=== PATIENT | female | born 1995 | race Two or more races ===

== ENCOUNTER → 2020-05-18 | Outpatient (CLI) | payer MEDICAID ==
[~2020-05-18] MED LIST: PREN-145 PO; TETRACAINE 1% INJ 2 ML VIAL IJ ONE
--- NOTE | 2020-05-18 13:00 | NUR ---
PT presents to COVID pre op swab. Pt given pre-procedure guidelines after covid test handout and consent signed. Swab obtained using proper technique and proper PPE.
== END | disposition home or self-care (01) ==
LOC: OB 12:40
PROVIDERS: ATTEND Obstetrics & Gynecology
DX: Z20.828 Contact with and (suspected) exposure to other viral communicable diseases (principal)

== ENCOUNTER 2020-05-23 04:25 | Inpatient (IN) | payer MEDICAID ==
[2020-05-23] VITALS (14 sets, daily range): BP systolic 89–113; BP diastolic 49–72
[~2020-05-23] VITALS: Ht 157.5 cm; Wt 64.9 kg
[~2020-05-23 04:25] MED LIST changes: -TETRACAINE 1% INJ 2 ML VIAL IJ ONE
[2020-05-23] MEDS ORDERED: LACTATED RINGER'S 1,000 ML IV SCH ×2 (04:35→09:21)
[2020-05-23 05:17] LABS: Basophils # (auto) 0.1 10 ^3/uL (0-0.2); Basophils % (auto) 0.6 % (0.0-2.0); Eosinophils # (auto) 0.1 10 ^3/uL (0-0.8); Eosinophils % (auto) 0.6 % (0.0-7.0); Hematocrit 36.6 % (36.0-46.0); Lymphocytes # (auto) 2.3 10 ^3/uL (0.4-5.4); Mean Corpuscular Hemoglobin 29.1 pg (28.0-32.0); Mean Corpuscular Hgb Conc. 32.7 g/dL (32.0-36.0); Monocytes # (auto) 0.6 10 ^3/uL (0-1.3); Monocytes % (auto) 6.9 % (0.0-12.0); Neutrophils # (auto) 5.5 10 ^3/uL (1.6-8.6); Neutrophils % (auto) 64.9 % (37.0-80.0); Nucleated Red Blood Cells % 0.1 %; Platelet Count (auto) 357 10^3/uL (140-450); Red Blood Cells 4.11 10^6/uL (4.0-5.20); Red Cell Distribution Width 13.7 % (11.8-14.3); White Blood Cell 8.5 10^3/uL (4.4-10.8)
[2020-05-23 05:23] LABS: Urine Bacteria MOD /hpf (None Seen); Urine Blood Negative /uL (Negative); Urine Mucus FEW (None Seen); Urine Specific Gravity 1.014 (1.001-1.035); Urine WBC 31 /hpf (0 - 5)
[2020-05-23 05:33] LABS: INR 0.9 (0.9-1.15); Partial Thromboplastin Time 22.9 sec (23.0-31.2)
[2020-05-23 05:35] LABS: Albumin 2.9 g/dL (3.4-5.0); Calcium 8.5 mg/dL (8.5-10.1); Potassium 3.5 mmol/L (3.5-5.1)
[2020-05-23 05:39] LABS: BUN/Creatinine Ratio 14.9; Bilirubin, Total 0.2 mg/dL (0.2-1.0); Total Protein 7.3 g/dL (6.4-8.2)
[2020-05-23 06:48] LABS: Alcohol, Urine < 3.0 mg/dL (0-10); Amphetamine Screen, Urine NEGATIVE (NEGATIVE); Barbiturate Scree,Urine NEGATIVE (NEGATIVE); Benzodiazephine Screen, Urine NEGATIVE (NEGATIVE); Cannabinoid Screen, Urine NEGATIVE (NEGATIVE); Cocaine Screen, Urine NEGATIVE (NEGATIVE); Opiate Scree,Urine NEGATIVE (NEGATIVE); Phencyclidine Screen, Urine NEGATIVE (NEGATIVE)
[2020-05-23] MEDS ORDERED: ePHEDrine SULFATE 50 MG/ML AMP ONE (07:34)
[2020-05-23] MEDS ORDERED: PHENYLEPHRINE HCL 10 MG/ML VL ONE (07:34)
[2020-05-23] MEDS ORDERED: MORPHINE SULF(PF) 0.5MG/ML 10ML VIAL ONE (07:34)
[2020-05-23] MEDS ORDERED: oxyTOCIN 10 UNIT/ML 10ML VIAL ONE (07:35)
[2020-05-23] MEDS ORDERED: ceFAZolin 1GM VL ONE (07:35)
[2020-05-23] MEDS ORDERED: MIDAZOLAM HCL 1MG/1ML-2 ML VIAL ONE ×2 (08:21→08:33)
[2020-05-23] MEDS ORDERED: METOCLOPRAMIDE HCL 5MG/ml INJ 2ml VIAL ONE (08:26)
[2020-05-23] MEDS ORDERED: ONDANSETRON HCL 4 MG/2 ML VIAL IV PRN ×3 (08:45→09:30)
[2020-05-23] MEDS ORDERED: HYDROmorphone HCL 2 MG/ML VL IV PRN ×2 (08:45→09:30)
[2020-05-23] MEDS ORDERED: KETOROLAC TROMETH 30 MG/ML 1ML VIAL IV PRN (08:45)
[2020-05-23] MEDS ORDERED: diphenhdrAMINE HCL 50 MG/1 ML VL IV PRN (08:45)
[2020-05-23] MEDS ORDERED: NALOXONE HCL 0.4 MG/ML VIAL IV PRN ×2 (08:45)
[2020-05-23] MEDS ORDERED: ACETAMINOPHEN IV 1000 MG/100ML (10MG/ML) IV PRN (09:30)
[2020-05-23] MEDS ORDERED: GUM (CHEWING) 1 GUM CHEW CHEW ONE (09:30)
--- NOTE | 2020-05-23 09:50 | NUR ---
Pt to room 8A from [facility] Report received from Rae pattern technician Fundus firm, scant bleeding, incision dressing dry and intact. Will continue to monitor.
[2020-05-23] MEDS: KETOROLAC TROMETH 30 MG/ML 1ML VIAL IV PRN ×2 (10:05→19:22)
--- NOTE | 2020-05-23 11:45 | NUR ---
Report received on stable patient from [facility]. Care transferred at this time
[2020-05-23] MEDS: ceFAZolin 1GM/50ML 50 ML IV SCH (16:04)
--- NOTE | 2020-05-23 17:15 | NUR ---
Pericare performed; bess pad and underpad changed; patient tolerated well.
--- NOTE | 2020-05-23 21:30 | NUR ---
Ambulation: Patient OOB with standby assistance by RN. Medel provided. Patient ambulates longterm down valentine via steady gait and tolerates well. Clean gown provided and bed linen changed. Patient ambulated back to bed with steady gait and no distress noted.
[2020-05-24] MEDS: ceFAZolin 1GM/50ML 50 ML IV SCH ×2 (00:24→07:17)
[2020-05-24] MEDS: KETOROLAC TROMETH 30 MG/ML 1ML VIAL IV PRN (02:19)
[2020-05-24 03:30] VITALS: BP 110/60
--- NOTE | 2020-05-24 05:00 | NUR ---
Browne catheter dc'd Order to discontinue browne catheter. Browne dc'd with clean technique following deflation of balloon. Patient tolerated well with no complaints of pain. Continue care.
[2020-05-24 05:11] LABS: RPR Non Reactive (Non Reactive)
[2020-05-24 06:20] LABS: Basophils # (auto) 0.1 10 ^3/uL (0-0.2); Eosinophils # (auto) 0 10 ^3/uL (0-0.8); Eosinophils % (auto) 0.2 % (0.0-7.0); Hematocrit 30.2 % (36.0-46.0); Lymphocytes # (auto) 1.3 10 ^3/uL (0.4-5.4); Lymphocytes % (auto) 13.1 % (10.0-50.0); Mean Corpuscular Hemoglobin 29.7 pg (28.0-32.0); Mean Corpuscular Hgb Conc. 33.3 g/dL (32.0-36.0); Mean Corpuscular Volume 89.2 fL (80.0-100.0); Monocytes # (auto) 0.8 10 ^3/uL (0-1.3); Monocytes % (auto) 7.8 % (0.0-12.0); Neutrophils % (auto) 77.9 % (37.0-80.0); Platelet Count (auto) 257 10^3/uL (140-450); Red Blood Cells 3.38 10^6/uL (4.0-5.20); Red Cell Distribution Width 13.6 % (11.8-14.3); White Blood Cell 10.2 10^3/uL (4.4-10.8)
[2020-05-24 07:21] VITALS: BP 89/44
[2020-05-24] MEDS ORDERED: BISACODYL 10 MG RECT SUPP PR PRN (08:30)
[2020-05-24] MEDS ORDERED: HYDROcodone-ACET 5/325MG TAB PO PRN (08:30)
--- NOTE | 2020-05-24 09:20 | NUR ---
Ambulation: Patient OOB with no assistance by RN. Patient ambulated to bathroom with steady gait. Patient able to void 300mL without difficulty. Patient ambulated back to bed with steady gait and no distress noted.
[2020-05-24] MEDS: DOCUSATE SOD 100 MG CAP PO SCH ×2 (09:22→21:28)
[2020-05-24] MEDS: DOCUSATE CALCIUM 240 MG CAP PO SCH (09:22)
[2020-05-24] MEDS: HYDROcodone-ACET 5/325MG TAB PO PRN ×4 (09:23→22:13)
[2020-05-24 11:30] VITALS: BP 92/46
[2020-05-24] MEDS: SIMETHICONE 80 MG CHEWABLE TABLET PO SCH ×3 (11:52→21:28)
[2020-05-24] MEDS: IBUPROFEN 800 MG TAB PO PRN ×2 (11:52→20:56)
[2020-05-24 15:00] VITALS: BP 89/54
[2020-05-24 19:00] VITALS: BP 90/74
[2020-05-24] MEDS ORDERED: BISACODYL 10 MG RECT SUPP PR ONE (22:30)
[2020-05-24 23:00] VITALS: BP 95/50
[2020-05-25] MEDS: HYDROcodone-ACET 5/325MG TAB PO PRN ×4 (02:33→19:00)
[2020-05-25 02:40] VITALS: BP 93/59
[2020-05-25] MEDS: SIMETHICONE 80 MG CHEWABLE TABLET PO SCH ×4 (05:28→22:33)
[2020-05-25] MEDS: IBUPROFEN 800 MG TAB PO PRN ×3 (05:29→22:33)
[2020-05-25 07:30] VITALS: BP 109/53
[2020-05-25] MEDS: DOCUSATE CALCIUM 240 MG CAP PO SCH (10:31)
[2020-05-25] MEDS: DOCUSATE SOD 100 MG CAP PO SCH ×2 (10:31→22:33)
[2020-05-25 11:00] VITALS: BP 89/44
--- NOTE | 2020-05-25 13:23 | NUR ---
IV removal IV DC'd with sterile technique, catheter fully intact to left hand 20g. Pressure dressing applied to site. Patient tolerated procedure well. Discharged with aftercare instructions per MD. NOTE:
[2020-05-25 15:00] VITALS: BP 92/52
[2020-05-25 19:15] VITALS: BP 97/55
[2020-05-25 22:42] VITALS: BP 106/65
[2020-05-26 02:52] VITALS: BP 98/56
[2020-05-26] MEDS: HYDROcodone-ACET 5/325MG TAB PO PRN ×2 (02:55→08:07)
[2020-05-26] MEDS: SIMETHICONE 80 MG CHEWABLE TABLET PO SCH (05:34)
[2020-05-26 07:30] VITALS: BP 105/59
--- NOTE | 2020-05-26 08:10 | NUR ---
BLOOD PRESURES REVIEWED WITH mitch VALENZUELA to continue with discharge to home
[2020-05-26] MEDS: DOCUSATE CALCIUM 240 MG CAP PO SCH (10:21)
[2020-05-26] MEDS: DOCUSATE SOD 100 MG CAP PO SCH (10:21)
[2020-05-26] MEDS: IBUPROFEN 800 MG TAB PO PRN (10:21)
[2020-05-26 10:29] VITALS: BP 120/80
--- NOTE | 2020-05-26 10:53 | NUR ---
Discharge: Discharge instructions given as ordered. Pt encouraged to follow up with EXTRACT[employer] LO[employer]ER [employer] UN[employer] as instructed. All questions and concerns addressed. Patient verbalized understanding. Medication reconciliation completed and copy given to patient. All required/requested vaccines given and copies of vaccinations given to patient. Patient encouraged to prepare to depart unit.
--- NOTE | 2020-05-26 11:00 | NUR ---
Discharge: Patient taken to vehicle, ambulatory with steady gait,, accompanied by staff and family member. No distress noted at time of departure, no adverse changes in status since initial assessment.
== END 2020-05-26 11:00 | disposition home or self-care (01) | DRG 540 ==
LOC: LDRP 04:25
PROVIDERS: ADMIT Specialist; ATTEND Specialist
PROC: 0UL70CZ Occlusion of Bilateral Fallopian Tubes with Extraluminal Device, Open Approach (ICD-10-PCS; 2020-05-23)
PROC: 10D00Z1 Extraction of Products of Conception, Low, Open Approach (ICD-10-PCS; principal; 2020-05-23 07:44)
DX: O99.62 Diseases of the digestive system complicating childbirth (principal); O34.211 Maternal care for low transverse scar from previous cesarean delivery; Z37.0 Single live birth; Z3A.39 39 weeks gestation of pregnancy; R71.0 Precipitous drop in hematocrit; K21.9 Gastro-esophageal reflux disease without esophagitis; Z30.2 Encounter for sterilization
CPT/HCPCS: 36415; 59025; 80053; 80307; 81001; 84112; 85025; 85610; 85730; 86592; 86850; 86870; 86900; 86901; 96360; 96361; 96374; 96375; G0378; J0131; J0690; J1885; J2250; J2405; J2590

== ENCOUNTER 2022-12-06 16:50 | Emergency (ER) | payer MEDICAID ==
[~2022-12-06] VITALS: Ht 157.5 cm; Wt 65.4 kg
[2022-12-06 16:57] VITALS: BP 121/69
[2022-12-06 17:26] LABS: Basophils # (auto) 0.1 10 ^3/uL (0-0.2); Basophils % (auto) 1.2 % (0.0-2.0); Eosinophils # (auto) 0.1 10 ^3/uL (0-0.8); Eosinophils % (auto) 0.9 % (0.0-7.0); Hematocrit 31.4 % (36.0-46.0); Hemoglobin 10.2 g/dL (12.2-16.2); Lymphocytes # (auto) 2.4 10 ^3/uL (0.4-5.4); Mean Corpuscular Hemoglobin 25.5 pg (28.0-32.0); Mean Corpuscular Hgb Conc. 32.6 g/dL (32.0-36.0); Mean Corpuscular Volume 78.3 fL (80.0-100.0); Monocytes # (auto) 0.6 10 ^3/uL (0-1.3); Monocytes % (auto) 7.8 % (0.0-12.0); Neutrophils # (auto) 4.1 10 ^3/uL (1.6-8.6); Neutrophils % (auto) 57.1 % (37.0-80.0); Red Blood Cells 4.01 10^6/uL (4.0-5.20); Red Cell Distribution Width 15.8 % (11.8-14.3); White Blood Cell 7.2 10^3/uL (4.4-10.8)
[2022-12-06 17:34] LABS: Albumin 3.8 g/dL (3.4-5.0); Calcium 8.4 mg/dL (8.5-10.1); Potassium 3.4 mmol/L (3.5-5.1)
[2022-12-06 17:37] LABS: Bilirubin, Total 0.2 mg/dL (0.2-1.0); Total Protein 7.4 g/dL (6.4-8.2)
== END 2022-12-06 22:25 | disposition left against medical advice (07) ==
LOC: ER 16:50
DX: R07.89 Other chest pain (principal); R06.02 Shortness of breath; R20.0 Anesthesia of skin; Z53.21 Procedure and treatment not carried out due to patient leaving prior to being seen by health care provider
CPT/HCPCS: 36415; 80053; 84484; 85025; 85379; 93005

== ENCOUNTER 2024-10-07 14:56 | Emergency (ER) | payer MEDICAID ==
[~2024-10-07] VITALS: Ht 157.5 cm; Wt 55.3 kg
[2024-10-07 16:17] VITALS: BP 113/60; PULSE 95; RESP 20; TEMP 98.4; O2SAT 98
--- NOTE | 2024-10-07 16:45 | ED.PDOC ---
Eye-HPI HPI Comments A 29 YEAR OLD FEMALE PRESENTS TO THE ED WITH COMPLAINT OF FLU-LIKE SYMPTOMS. PATIENT STATES THAT SHE HAS BEEN EXPERIENCING FLU-LIKE SYMPTOMS X2DAYS, WITH ASSOCIATED SYMPTOMS OF COUGH, FEVER, AND NASAL CONGESTION. PATIENT DENIES F CHILLS, SHORTNESS OF BREATH, CHEST PAIN, ABDOMINAL PAIN, NAUSEA, VOMITING, HEADACHE, OR OTHER COMPLAINTS. NO OTHER SYMPTOMS OR MODIFYING FACTORS AT THIS TIME. PATIENT IS ALERT, ORIENTED X 4, AND HAS STEADY GAIT. Chief Complaint: Flu like Time Seen by MD: 04:30 Primary Care Provider: JOAQUIM Reviewed Notes: Nurses Notes, Medications, Allergies Allergies: Coded Allergies: NO KNOWN ALLERGIES (Unverified , 07/05/15) Home Meds Reported Medications Vit W/ Ferrous Fumara (PNV FOLIC ACID + IRON MUL) + Iron Tab, 1 IRON PO, TAB 07/07/15 Information Source: Patient Mode of Arrival: Ambulatory Timing: Days Duration: Days Prehospital treatment: None Lids: Normal Conjunctiva: Normal Cornea: Normal EOM: Normal Fundus: Normal Slit lamp exam: Normal Mouth Location: Pharynx Mouth: Normal ENT Ear Exam: Normal Oropharynx: Tonsillar hypertrophy, Red, Normal Onset: Spontaneous Throat Exposed to: None History of: None Last Tetanus: UTD, Unknown Modifying factors: Nothing Associated signs and symptoms: Chills, Sore Throat Past Medical History PAST MEDICAL HISTORY: Denies Surgical History: HOSPITAL CHIEF EXECUTIVE OFFICER History: No Pertinent HOSPITAL CHIEF EXECUTIVE OFFICER History Family History Family History: Unknown Social History Smoker: Non-Smoker Alcohol: Denies ETOH Use Drugs: Denies Drug Use Lives In: Home Constitutional: reports: fever; denies: chills, diaphoresis, fatigue, malaise, sweats, weakness, others EENTM: reports: nasal discharge, throat swelling; denies: blurred vision, double vision, ear bleeding, ear discharge, ear drainage, ear pain, ear ringing, eye pain, eye redness, hearing loss, mouth pain, mouth swelling, nose bleeding, nose congestion, nose pain, photophobia, tearing, throat pain, voice changes, others Respiratory: reports: cough; denies: hemoptysis, orthopnea, SOB at rest, shortness of breath, SOB with excertion, stridor, wheezing, others Cardiovascular: denies: chest pain, dizzy spells, diaphoresis, Dyspnea on exertion, edema, irregular heart beat, left arm pain, lightheadedness, palpitations, PND, syncope, others Gastrointestinal: denies: abdomen distended, abdominal pain, blood streaked bowels, constipated, diarrhea, dysphagia, difficulty swallowing, hematemesis, melena, nausea, poor appetite, poor fluid intake, rectal bleeding, rectal pain, vomiting, others Genitourinary: denies: abnormal vagina bleeding, burning, dyspareunia, dysuria, flank pain, frequency, hematuria, incontinence, pain, , vagina discharge, urgency, others Neurological: denies: dizziness, fainting, headache, left sided numbness, left sided weakness, numbness, paresthesia, pre-existing deficit, right sided numbness, right sided weakness, seizure, speech problems, tingling, tremors, weakness, others Musculoskeletal: denies: back pain, gout, joint pain, joint swelling, muscle pain, muscle stiffness, neck pain, others Integumetry: denies: bruises, change in color, change in hair/nails, dryness, laceration, lesions, lumps, rash, wounds, others Allergic/Immunocompromised: denies: Difficulty Healing, Frequent Infections, Hives, Itching, others Hematologic/Lymphatic: denies: anemia, blood clots, easy bleeding, easy bruising, swollen glands, others Endocrine: denies: excessive hunger, excessive sweating, excessive thirst, excessive urination, flushing, intolerance to cold, intolerance to heat, unexplained weight gain, unexplained weight loss, others Psychiatric: denies: anxiety, bipolar disorder, depression, hopeless, panic disorder, schizophrenia, sleepless, suicidal, others All Other Systems: Reviewed and Negative Physical Exam General Appearance: No Apparent Distress, Normal HEENT: PERRL/EOMI, Pharyngeal Erythema (TONSILLAR SWELLING, NO EXUDATES. ), TMs Normal Neck: Full Range of Motion, Non-Tender, Normal, Normal Inspection Respiratory: Chest Non-Tender, Lungs Clear, No Accessory Muscle Use, No Respiratory Distress, Normal Breath Sounds Cardiovascular: No Edema, No JVD, No Murmur, No Gallop, Normal Peripheral Pulses, Regular Rate/Rhythm Breast Exam: Deferred Gastrointestinal: No Organomegaly, Non Tender, No Pulsatile Mass, Normal Bowel Sounds, Soft Genitalia: Deferred Pelvic: Deferred Rectal: Deferred Extremities: No calf tenderness, Normal capillary refill, Normal inspection, Normal range of motion, Non-tender, No pedal edema Musculoskeletal : Apperance: Normal Neurologic: Alert, lumpia wrapper maker II-XII nml as Tested, No Motor Deficits, Normal Affect, Normal Mood, No Sensory Deficits Cerebellar Function: Normal Reflexes: Normal Skin: Dry, Normal Color, Warm Peripheral Pulses: 2+ carotid (R), 2+ carotid (L) Lymphatic: No Adenopathy Was a procedure done? Was a procedure done?: No EENT DIFF Eye: Other Ear: Otitis Media, Pharyngitis Sore Throat: Epiglottitis, Pharyngitis, URI, Other (VIRAL TONSILLITIS ) X-Ray, Labs, Meds, VS Vital Signs Date Time Temp Pulse Resp B/P (MAP) Pulse Ox O2 Delivery O2 Flow Rate FiO2 10/07/24 16:17 95 20 98 Room Air 10/07/24 16:17 98.4 95 20 113/60 (77) 95 98.4 10/07/24 14:56 98.4 95 20 113/60 (77) 98 Time of 1ST Reevaluation: 17:20 Reevaluation 1ST: Improved Patient Education/Counseling: Diagnosis, Treatment, Need For Follow Up Family Education/Counseling: Diagnosis, Treatment, Need For Follow Up, No Family Present Medical Screening: No EMC Exist At This Time Departure 1 Departure Time of Disposition: 17:20 Impression: Primary Impression: Acute viral tonsillitis Disposition: HOME / SELF CARE / HOMELESS Condition: Stable Additional Instructions: FOLLOW-UP WITH PCP IN 1 TO 2 DAYS. TAKE MEDICATIONS PRESCRIBED. RETURN TO ED FOR ANY NEW OR WORSENING SYMPTOMS. e-Prescriptions Ibuprofen (Ibuprofen) 600 Mg Tab 1 TAB PO TID, #30 TAB Prov: IZAIAH MAZA 10/07/24 Methylprednisolone (Medrol Dosepak) 4 Mg Alcides 4 MG PO UD, #21 TAB UAD Prov: IZAIAH MAZA 10/07/24 Discharged With: Self Critical Care Note Critical Care Time?: No Stability Stability form required: No Heart Score Heart Score: Heart Score Response (Comments) Value History N/A 0 EKG N/A 0 Age N/A 0 Risk Factors N/A 0 Troponin N/A 0 Total 0 I personally scribed for IZAIAH MAZA ([email or web address]) on 10/07/24 at 16:45. Electronically submitted by Lamar [email or web address]). IZAIAH MAZA Oct 07, 2024 16:45
[2024-10-07] MEDS ORDERED: IBUP-1454 PO (17:13)
[2024-10-07] MEDS ORDERED: METH4PAK PO (17:13)
== END 2024-10-07 17:32 | disposition home or self-care (01) ==
LOC: ER 14:56
DX: J03.80 Acute tonsillitis due to other specified organisms (principal); B97.89 Other viral agents as the cause of diseases classified elsewhere; Z98.890 Other specified postprocedural states; Z79.899 Other long term (current) drug therapy